=== PATIENT | male | born 1960 | race Caucasian/White ===

== ENCOUNTER 2016-12-20 18:49 | Inpatient (IN) | payer BC ==
[~2016-12-20] VITALS: Ht 175.3 cm; Wt 104.3 kg
[2016-12-20 19:41] LABS: DEFINITIVE VIEW TRANSMISSION; Hematocrit 34.1 % (41.0-53.0); Hemoglobin 11.4 g/dL (13.5-17.5); Mean Corpuscular Hemoglobin 31.9 pg (28.0-32.0); Mean Corpuscular Hgb Conc. 33.4 g/dL (32.0-36.0); Mean Corpuscular Volume 95.6 fL (80.0-100.0); Mean Platelet Volume 7.7 fL (7.4-10.4); Platelet Count (auto) 166 10^3/uL (140-450); Red Cell Distribution Width 15.8 % (11.6-16.0); SUSPECT VIEW TRANSMISSION
[2016-12-20 20:26] LABS: Chloride 106 mmol/L (98-107); Sodium 135 mmol/L (136-145)
[2016-12-20 20:34] LABS: Albumin 2.4 g/dL (3.4-5.0); Anion Gap 15 (5-15); Aspartate Aminotransferase 18 U/L (15-37); BUN/Creatinine Ratio 20.2; Bilirubin, Total 0.6 mg/dL (0.2-1.0); Calcium 7.6 mg/dL (8.5-10.1); Carbon Dioxide 14 mmol/L (21-32); GFR African American 10 mL/min; GFR Non-African American 8 mL/min; Glucose 195 mg/dL (74-106)
[2016-12-20 20:46] LABS: Alkaline Phosphatase 141 U/L (45-117); Total Protein 6.9 g/dL (6.4-8.2)
[2016-12-20 20:53] LABS: White Blood Cell 30.3 10^3/uL (4.4-10.8)
[2016-12-20 20:54] LABS: Metamyelocytes % 0; Myelocytes % 0; Promyelocytes % 0; Reactive Lymphocytes 0
[2016-12-20] MEDS ORDERED: SODIUM CHLORIDE 0.9% 1,000 ML IV ONE (21:00)
[2016-12-20 21:08] LABS: Potassium 6.1 mmol/L (3.5-5.1)
[2016-12-20 21:09] LABS: Blood Urea Nitrogen 146 mg/dL (7-18)
[2016-12-20] MEDS ORDERED: CALCIUM GLUC 4.65 MEQ/10ML 4.65 MEQ in SODIUM CHL 0.9% 50 ML IV ONE (21:30)
[2016-12-20] MEDS ORDERED: DEXTROSE (50%) 50ML SYRG IV ONE (21:30)
[2016-12-20] MEDS ORDERED: InsuLIN REG 1unit/0.01ml Soln (100units/ml) IV ONE (21:30)
[2016-12-20] MEDS ORDERED: SODIUM BICARBONATE 8.4 % INJ 50ML VIAL IV ONE (21:30)
[2016-12-20 22:21] LABS: Platelet Estimate Adequate
[2016-12-20 22:22] LABS: Burr Cells MODERATE; Ovalocytes FEW
[2016-12-20] MEDS ORDERED: SODIUM CHLORIDE 0.9% 1,000 ML IV SCH (23:28)
[2016-12-20] MEDS ORDERED: DEXTROSE (50%) 50ML SYRG IV PRN (23:30)
[2016-12-20] MEDS ORDERED: ONDANSETRON HCL 4 MG/2 ML VIAL IV PRN (23:30)
[2016-12-20] MEDS ORDERED: NITROGLYCERIN 0.4 MG SL TAB SL PRN (23:30)
[2016-12-20] MEDS ORDERED: cefTRIAXone 1GM/50ML D5W 50 ML IV ONE (23:30)
[2016-12-20] MEDS ORDERED: MORPHINE SULF INJ 2 MG/ML SYRINGE 1ML IV PRN (23:30)
[2016-12-20] MEDS ORDERED: ACETAMINOPHEN 325 MG TAB PO PRN (23:30)
[2016-12-21] VITALS (7 sets, daily range): BP systolic 116–152; BP diastolic 56–64
[2016-12-21] MEDS: ACCU-CHEK COMFORT CURVE STRIP VI SCH ×5 (01:37→23:55)
[2016-12-21] MEDS: InsuLIN REG 1unit/0.01ml Soln (100units/ml) SC SCH ×5 (01:39→23:57)
[2016-12-21 03:20] LABS: DEFINITIVE VIEW TRANSMISSION; Hematocrit 31.4 % (41.0-53.0); Hemoglobin 10.4 g/dL (13.5-17.5); Mean Corpuscular Hemoglobin 32.3 pg (28.0-32.0); Mean Corpuscular Hgb Conc. 33.1 g/dL (32.0-36.0); Mean Corpuscular Volume 97.3 fL (80.0-100.0); Mean Platelet Volume 7.8 fL (7.4-10.4); Platelet Count (auto) 136 10^3/uL (140-450); Red Cell Distribution Width 15.4 % (11.6-16.0); SUSPECT VIEW TRANSMISSION
[2016-12-21 03:34] LABS: Metamyelocytes % 0; Myelocytes % 0; Promyelocytes % 0; Reactive Lymphocytes 0
[2016-12-21 03:43] LABS: Albumin 2.1 g/dL (3.4-5.0); Calcium 7.5 mg/dL (8.5-10.1)
[2016-12-21] MEDS ORDERED: VANCOMYCIN PER PHARMACY 0 MG IV SCH (03:45)
[2016-12-21] MEDS ORDERED: SODIUM CHLORIDE 0.9% 500 ML IV ONE (03:45)
[2016-12-21 03:53] LABS: Bilirubin, Total 0.4 mg/dL (0.2-1.0); Total Protein 6.2 g/dL (6.4-8.2)
[2016-12-21 04:00] LABS: BUN/Creatinine Ratio 22.2; Potassium 6.3 mmol/L (3.5-5.1)
[2016-12-21] MEDS ORDERED: VANCOMYCIN 1GM/250ML D5W 250 ML IV ONE ×2 (04:00→09:00)
[2016-12-21 04:11] LABS: Urine Bilirubin Negative (Negative); Urine Color Yellow (Yellow); Urine Glucose Normal (Normal); Urine Ketone Negative (Negative); Urine Nitrite Negative (Negative); Urine RBC 16 /hpf (0 - 3); Urine Urobilinogen Normal (Negative)
[2016-12-21 04:12] LABS: Urine Blood 2+ /uL (Negative)
[2016-12-21] MEDS ORDERED: SODIUM POLYSTYRENE SULF 15GM/60ML SUSP PO ONE (04:15)
[2016-12-21] MEDS ORDERED: DEXTROSE (50%) 50ML SYRG IV ONE (04:15)
[2016-12-21] MEDS ORDERED: CALCIUM GLUC 4.65 MEQ/10ML 4.65 MEQ in SODIUM CHL 0.9% 50 ML IV ONE (04:15)
[2016-12-21] MEDS ORDERED: SODIUM BICARBONATE 8.4 % INJ 50ML VIAL IV ONE ×2 (04:15→12:45)
[2016-12-21] MEDS ORDERED: ALBUTEROL SULF 2.5 MG/0.5ML(0.5%) NEB SOLN NEB ONE (04:15)
[2016-12-21] MEDS ORDERED: InsuLIN REG 1unit/0.01ml Soln (100units/ml) IV ONE ×2 (04:15→12:45)
[2016-12-21] MEDS ORDERED: CALCIUM GLUC 4.65 MEQ/10ML IV ONE (04:17)
[2016-12-21 04:34] LABS: Hypersegmented Neutrophils Present
[2016-12-21 04:35] LABS: Burr Cells FEW; Ovalocytes FEW; Platelet Estimate Adequate; RBC Morphology Normal
[2016-12-21] MEDS: LEVOTHYROXINE SODIUM 25 MCG TAB PO SCH (05:58)
[2016-12-21] MEDS ORDERED: PRED1PAK10 PO (06:25)
[2016-12-21] MEDS ORDERED: HYDR-531 PO (06:25)
[2016-12-21] MEDS ORDERED: [UNRECOGNIZED DRUG - CODE] IM (06:25)
[2016-12-21] MEDS ORDERED: LISI10TA6 PO (06:25)
[2016-12-21] MEDS ORDERED: LEVO25TA49 PO (06:25)
[2016-12-21] MEDS ORDERED: INSUINJ18 SC (06:25)
[2016-12-21] MEDS ORDERED: CYCL100C8 PO (06:25)
[2016-12-21] MEDS ORDERED: OMEP20CA5 PO (06:25)
[2016-12-21] MEDS ORDERED: LEVEMIR SC (06:25)
[2016-12-21] MEDS: PIPERACILLIN-TAZOB 2.25GM 50 ML IV SCH ×3 (09:41→21:10)
[2016-12-21] MEDS ORDERED: PIPERACILLIN-TAZOB 3.375GM 100 ML IV ONE (09:45)
[2016-12-21] MEDS ORDERED: LISINOPRIL 5 MG TAB PO SCH (10:00)
[2016-12-21] MEDS ORDERED: FAMOTIDINE 20 MG TAB PO SCH (10:00)
[2016-12-21] MEDS ORDERED: ACETAMINOPHEN 650 MG RECT SUPP PR PRN (10:00)
[2016-12-21] MEDS: FAMOTIDINE 20 MG TAB PO SCH (10:00)
[2016-12-21] MEDS ORDERED: predniSONE 20 MG TAB PO SCH (10:00)
[2016-12-21] MEDS: LINEZOLID 600MG/300ML 300 ML IV SCH ×2 (10:03→22:18)
[2016-12-21] MEDS ORDERED: SODIUM CHLORIDE 0.9% 1,000 ML IV SCH (10:07)
[2016-12-21] MEDS ORDERED: PIPERACILLIN-TAZOB 3.375GM 100 ML IV SCH (12:00)
[2016-12-21] MEDS: ENOXAPARIN SOD 30 MG/0.3 ML SYRINGE SC SCH (12:21)
[2016-12-21] MEDS ORDERED: AMIODARONE HCL 150 MG in D5W 5% 100 ML IV ONE (12:45)
[2016-12-21] MEDS ORDERED: AMIODARONE HCL 900 MG in DEXTROSE 500 ML IV SCH (12:55)
[2016-12-21] MEDS: SODIUM BICARBONATE 50ML VIAL 50 ML in SOD CHL 0.45% 1,000 ML IV SCH ×2 (14:58→21:09)
[2016-12-21 17:38] LABS: Uric Acid 7.4 mg/dL (3.5-7.2)
[2016-12-21] MEDS: AMIODARONE HCL 900 MG in DEXTROSE 500 ML IV SCH (19:16)
[2016-12-21] MEDS ORDERED: cefTRIAXone 1GM/50ML D5W 50 ML IV SCH (21:00)
[2016-12-22] VITALS: BP 143/61
[2016-12-22 04:01] VITALS: BP 144/66
[2016-12-22] MEDS: PIPERACILLIN-TAZOB 2.25GM 50 ML IV SCH (05:02)
[2016-12-22] MEDS: ACCU-CHEK COMFORT CURVE STRIP VI SCH ×3 (05:02→17:18)
[2016-12-22] MEDS: LEVOTHYROXINE SODIUM 25 MCG TAB PO SCH (05:02)
[2016-12-22] MEDS: InsuLIN REG 1unit/0.01ml Soln (100units/ml) SC SCH ×3 (05:55→18:25)
[2016-12-22 06:32] LABS: DEFINITIVE VIEW TRANSMISSION; Hemoglobin 10.5 g/dL (13.5-17.5); Mean Corpuscular Hemoglobin 32.7 pg (28.0-32.0); Mean Corpuscular Hgb Conc. 33.8 g/dL (32.0-36.0); Mean Corpuscular Volume 96.6 fL (80.0-100.0); Mean Platelet Volume 7.6 fL (7.4-10.4); Platelet Count (auto) 128 10^3/uL (140-450); Red Cell Distribution Width 15.5 % (11.6-16.0); SUSPECT VIEW TRANSMISSION; White Blood Cell 20.1 10^3/uL (4.4-10.8)
[2016-12-22 06:50] LABS: Calcium 7.7 mg/dL (8.5-10.1)
[2016-12-22 06:53] LABS: BUN/Creatinine Ratio 25.6
[2016-12-22 06:55] LABS: Bilirubin, Total 0.6 mg/dL (0.2-1.0); Total Protein 6.3 g/dL (6.4-8.2)
[2016-12-22 06:57] LABS: Metamyelocytes % 0; Myelocytes % 0; Promyelocytes % 0; Reactive Lymphocytes 0
[2016-12-22 07:08] LABS: Magnesium 3.1 mg/dL (1.6-2.6); Phosphorus 8.6 mg/dL (2.5-4.90)
[2016-12-22 07:19] LABS: Potassium 5.7 mmol/L (3.5-5.1)
[2016-12-22 07:42] LABS: Uric Acid 8.1 mg/dL (3.5-7.2)
[2016-12-22 07:54] VITALS: BP 152/64
[2016-12-22] MEDS: SODIUM BICARBONATE 50ML VIAL 50 ML in SOD CHL 0.45% 1,000 ML IV SCH ×3 (08:56→22:21)
[2016-12-22] MEDS: FAMOTIDINE 20 MG TAB PO SCH (10:00)
[2016-12-22] MEDS: predniSONE 20 MG TAB PO SCH (10:00)
[2016-12-22] MEDS: LINEZOLID 600MG/300ML 300 ML IV SCH ×2 (11:15→21:09)
[2016-12-22] MEDS: ENOXAPARIN SOD 30 MG/0.3 ML SYRINGE SC SCH (11:16)
[2016-12-22] MEDS ORDERED: methylPREDNISolone SOD SUCC 125 MG/2 ML VL IM ONE (11:45)
[2016-12-22 12:00] VITALS: BP 113/67
[2016-12-22] MEDS ORDERED: CEFEPIME HYDROCHLORIDE 1 GM in D5W 5% 50 ML IV ONE (12:15)
[2016-12-22] MEDS ORDERED: methylPREDNISolone SOD SUCC 125 MG/2 ML VL IV ONE (12:45)
[2016-12-22 15:20] LABS: Platelet Estimate Decreased
[2016-12-22 15:21] LABS: Burr Cells FEW; Ovalocytes FEW
[2016-12-22 16:00] VITALS: BP 153/62
[2016-12-22] MEDS: AMIODARONE HCL 900 MG in DEXTROSE 500 ML IV SCH (19:01)
[2016-12-22 20:00] VITALS: BP 167/79
[2016-12-23] VITALS (9 sets, daily range): BP systolic 148–179; BP diastolic 73–93
[2016-12-23] MEDS: ACCU-CHEK COMFORT CURVE STRIP VI SCH ×5 (00:02→23:49)
[2016-12-23] MEDS: InsuLIN REG 1unit/0.01ml Soln (100units/ml) SC SCH ×5 (00:02→23:56)
[2016-12-23] MEDS: LEVOTHYROXINE SODIUM 25 MCG TAB PO SCH (04:57)
[2016-12-23 05:43] LABS: Basophils # (auto) 0 uL; Eosinophils # (auto) 0 uL; Hemoglobin 11.4 g/dL (13.5-17.5); Lymphocytes # (auto) 0.2 uL; Lymphocytes % (auto) 1.8 % (10.0-50.0); Mean Corpuscular Hemoglobin 31.7 pg (28.0-32.0); Mean Corpuscular Hgb Conc. 32.7 g/dL (32.0-36.0); Mean Corpuscular Volume 96.8 fL (80.0-100.0); Mean Platelet Volume 7.6 fL (7.4-10.4); Monocytes # (auto) 0.1 uL; Monocytes % (auto) 1.4 % (0.0-12.0); Neutrophils # (auto) 9.9 uL; Neutrophils % (auto) 96.8 % (37.0-80.0); Platelet Count (auto) 85 10^3/uL (140-450); Red Cell Distribution Width 15.4 % (11.6-16.0); White Blood Cell 10.3 10^3/uL (4.4-10.8)
[2016-12-23 06:06] LABS: Albumin 2.1 g/dL (3.4-5.0); BUN/Creatinine Ratio 31.3; Bilirubin, Total 0.7 mg/dL (0.2-1.0); Calcium 8.6 mg/dL (8.5-10.1); Total Protein 6.8 g/dL (6.4-8.2)
[2016-12-23 06:30] LABS: Potassium 5.7 mmol/L (3.5-5.1)
[2016-12-23] MEDS: predniSONE 20 MG TAB PO SCH (10:00)
[2016-12-23] MEDS ORDERED: CEFEPIME HYDROCHLORIDE 1 GM in D5W 5% 50 ML IV SCH (10:00)
[2016-12-23] MEDS: FAMOTIDINE 20 MG TAB PO SCH (10:00)
[2016-12-23] MEDS: ENOXAPARIN SOD 30 MG/0.3 ML SYRINGE SC SCH (10:35)
[2016-12-23] MEDS: LINEZOLID 600MG/300ML 300 ML IV SCH (10:35)
[2016-12-23] MEDS ORDERED: INSULIN DETEMIR(LEVEMIR) 1unit/0.01ml Soln (100units/ml) SC SCH (11:00)
[2016-12-23] MEDS ORDERED: methylPREDNISolone SOD SUCC 250 MG in SODIUM CHL 0.9% 100 ML IV ONE (11:00)
[2016-12-23] MEDS ORDERED: LORazepam 2MG/ML-1ML VIAL IV ONE (11:00)
[2016-12-23] MEDS: NYSTATIN (MOUTH-THROAT) 500,000 UNITS/5 ML SUSP MT SCH ×3 (13:47→21:29)
[2016-12-23] MEDS: INSULIN DETEMIR(LEVEMIR) 1unit/0.01ml Soln (100units/ml) SC SCH (15:36)
[2016-12-23] MEDS: AMIODARONE HCL 900 MG in DEXTROSE 500 ML IV SCH (18:55)
[2016-12-23 19:59] LABS: BUN/Creatinine Ratio 33.4; Calcium 8.4 mg/dL (8.5-10.1); Potassium 4.8 mmol/L (3.5-5.1)
[2016-12-23] MEDS: AMIODARONE HCL 200 MG TAB PO SCH (21:30)
[2016-12-23] MEDS: hydrALAZINE HCL 20 MG/ML VL IV PRN (23:51)
[2016-12-24] VITALS (7 sets, daily range): BP systolic 137–167; BP diastolic 51–88
[2016-12-24 05:03] LABS: Basophils # (auto) 0 uL; Eosinophils # (auto) 0 uL; Hematocrit 31.1 % (41.0-53.0); Hemoglobin 10.4 g/dL (13.5-17.5); Lymphocytes # (auto) 0.2 uL; Lymphocytes % (auto) 2.1 % (10.0-50.0); Mean Corpuscular Hemoglobin 31.8 pg (28.0-32.0); Mean Corpuscular Hgb Conc. 33.3 g/dL (32.0-36.0); Mean Corpuscular Volume 95.4 fL (80.0-100.0); Monocytes # (auto) 0.3 uL; Monocytes % (auto) 2.8 % (0.0-12.0); Neutrophils # (auto) 8.7 uL; Neutrophils % (auto) 95.1 % (37.0-80.0); Platelet Count (auto) 93 10^3/uL (140-450); Red Cell Distribution Width 15.1 % (11.6-16.0); White Blood Cell 9.2 10^3/uL (4.4-10.8)
[2016-12-24] MEDS: SODIUM BICARBONATE 50ML VIAL 50 ML in SOD CHL 0.45% 1,000 ML IV SCH ×4 (05:28→18:22)
[2016-12-24 05:39] LABS: Albumin 2.2 g/dL (3.4-5.0); BUN/Creatinine Ratio 35.8; Bilirubin, Total 0.6 mg/dL (0.2-1.0); Calcium 8.7 mg/dL (8.5-10.1); Phosphorus 4.3 mg/dL (2.5-4.90); Potassium 4.4 mmol/L (3.5-5.1); Total Protein 6.7 g/dL (6.4-8.2)
[2016-12-24] MEDS: NYSTATIN (MOUTH-THROAT) 500,000 UNITS/5 ML SUSP MT SCH ×4 (06:06→21:49)
[2016-12-24] MEDS: LEVOTHYROXINE SODIUM 25 MCG TAB PO SCH (06:06)
[2016-12-24] MEDS: ACCU-CHEK COMFORT CURVE STRIP VI SCH ×3 (06:07→17:43)
[2016-12-24] MEDS: INSULIN DETEMIR(LEVEMIR) 1unit/0.01ml Soln (100units/ml) SC SCH (06:17)
[2016-12-24] MEDS: InsuLIN REG 1unit/0.01ml Soln (100units/ml) SC SCH ×3 (06:18→17:46)
[2016-12-24] MEDS: hydrALAZINE HCL 20 MG/ML VL IV PRN (08:18)
[2016-12-24] MEDS: predniSONE 20 MG TAB PO SCH (09:59)
[2016-12-24] MEDS: ENOXAPARIN SOD 30 MG/0.3 ML SYRINGE SC SCH (10:00)
[2016-12-24] MEDS: AMIODARONE HCL 200 MG TAB PO SCH ×2 (10:00→21:49)
[2016-12-24] MEDS: FAMOTIDINE 20 MG TAB PO SCH (10:00)
[2016-12-24] MEDS ORDERED: methylPREDNISolone SOD SUCC 250 MG in SODIUM CHL 0.9% 100 ML IV ONE (10:45)
[2016-12-24] MEDS: HYDROcodone-ACET 5/325MG TAB PO PRN ×2 (11:40→21:57)
[2016-12-24] MEDS: METOPROLOL TARTRATE 50 MG TAB PO SCH ×2 (11:40→21:49)
[2016-12-24] MEDS: clonazePAM 0.5 MG TAB PO PRN (16:21)
[2016-12-25] VITALS: BP 166/78
[2016-12-25] MEDS: ACCU-CHEK COMFORT CURVE STRIP VI SCH ×4 (01:28→12:10)
[2016-12-25] MEDS: InsuLIN REG 1unit/0.01ml Soln (100units/ml) SC SCH ×4 (01:28→12:14)
[2016-12-25] MEDS: HYDROcodone-ACET 5/325MG TAB PO PRN ×2 (03:51→10:04)
[2016-12-25] MEDS: clonazePAM 0.5 MG TAB PO PRN (03:51)
[2016-12-25 04:00] VITALS: BP 148/70
[2016-12-25] MEDS: NYSTATIN (MOUTH-THROAT) 500,000 UNITS/5 ML SUSP MT SCH ×2 (06:00→12:10)
[2016-12-25 06:01] VITALS: BP 148/70
[2016-12-25] MEDS: LEVOTHYROXINE SODIUM 25 MCG TAB PO SCH (06:45)
[2016-12-25] MEDS: INSULIN DETEMIR(LEVEMIR) 1unit/0.01ml Soln (100units/ml) SC SCH (06:53)
[2016-12-25 08:00] VITALS: BP 142/75
[2016-12-25] MEDS: ENOXAPARIN SOD 30 MG/0.3 ML SYRINGE SC SCH (10:00)
[2016-12-25] MEDS: METOPROLOL TARTRATE 50 MG TAB PO SCH (10:00)
[2016-12-25] MEDS ORDERED: D5W 5% 1,000 ML IV ONE (10:00)
[2016-12-25] MEDS: AMIODARONE HCL 200 MG TAB PO SCH (10:03)
[2016-12-25] MEDS: predniSONE 20 MG TAB PO SCH (10:03)
[2016-12-25] MEDS: FAMOTIDINE 20 MG TAB PO SCH (10:03)
[2016-12-25 10:14] LABS: BUN/Creatinine Ratio 43.2; Calcium 7.8 mg/dL (8.5-10.1); Potassium 4.7 mmol/L (3.5-5.1)
[2016-12-25 10:16] LABS: Basophils # (auto) 0 uL; Eosinophils # (auto) 0 uL; Hematocrit 27.9 % (41.0-53.0); Hemoglobin 9.4 g/dL (13.5-17.5); Lymphocytes # (auto) 0.2 uL; Lymphocytes % (auto) 3.7 % (10.0-50.0); Mean Corpuscular Hemoglobin 31.7 pg (28.0-32.0); Mean Corpuscular Hgb Conc. 33.7 g/dL (32.0-36.0); Mean Corpuscular Volume 94.2 fL (80.0-100.0); Mean Platelet Volume 6.8 fL (7.4-10.4); Monocytes # (auto) 0.2 uL; Monocytes % (auto) 3.4 % (0.0-12.0); Neutrophils # (auto) 5.5 uL; Neutrophils % (auto) 92.9 % (37.0-80.0); Platelet Count (auto) 67 10^3/uL (140-450); Red Cell Distribution Width 14.6 % (11.6-16.0); White Blood Cell 5.9 10^3/uL (4.4-10.8)
[2016-12-25 12:00] VITALS: BP 134/72
== END 2016-12-25 15:23 | DRG 871 ==
LOC: ER 19:06 → TELE 19:07 → TELE-CENTR 12-21 01:37 → ICU CENTRL 12-21 09:06 → DOU IN ICU 12-21 09:08
PROVIDERS: ADMIT Internal Medicine; ATTEND Internal Medicine
DX: A41.9 Sepsis, unspecified organism (principal); G93.41 Metabolic encephalopathy; E43 Unspecified severe protein-calorie malnutrition; N18.6 End stage renal disease; E87.2 Acidosis; I12.0 Hypertensive chronic kidney disease with stage 5 chronic kidney disease or end stage renal disease; B37.0 Candidal stomatitis; E87.0 Hyperosmolality and hypernatremia; I48.92 Unspecified atrial flutter; N17.9 Acute kidney failure, unspecified; Z94.0 Kidney transplant status; D72.829 Elevated white blood cell count, unspecified; E11.65 Type 2 diabetes mellitus with hyperglycemia; E83.41 Hypermagnesemia; E83.51 Hypocalcemia; G89.29 Other chronic pain; I48.91 Unspecified atrial fibrillation; M19.90 Unspecified osteoarthritis, unspecified site; E87.5 Hyperkalemia; E11.22 Type 2 diabetes mellitus with diabetic chronic kidney disease; K21.9 Gastro-esophageal reflux disease without esophagitis; R13.10 Dysphagia, unspecified; D64.9 Anemia, unspecified; D75.82 Heparin induced thrombocytopenia (HIT); E03.9 Hypothyroidism, unspecified; F32.9 Major depressive disorder, single episode, unspecified; T38.0X5A Adverse effect of glucocorticoids and synthetic analogues, initial encounter; Z79.4 Long term (current) use of insulin; Z79.52 Long term (current) use of systemic steroids; Z68.34 Body mass index [BMI] 34.0-34.9, adult
CPT/HCPCS: 36415; 36600; 70450; 70490; 70551; 71010; 76775; 76881; 80048; 80053; 80158; 80320; 81001; 82140; 82550; 82805; 82962; 83036; 83605; 83735; 84100; 84132; 84439; 84443; 84481; 84484; 84550; 85007; 85025; 85027; 86803; 87040; 87081; 87086; 87340; 92610; 93005; 93306; 94644; 96365; 96375; 99291; G0434; J0696; J1815; J2543; J7060